=== PATIENT | female | born 1985 | race Caucasian/White ===

== ENCOUNTER 2016-12-04 21:43 | Emergency (ER) | payer OTHER ==
[~2016-12-04] VITALS: Ht 152.4 cm; Wt 89.8 kg
[2016-12-04] MEDS ORDERED: TAPAZOLE10 MG PO (22:00)
[2016-12-04] MEDS ORDERED: IRON325 PO (22:00)
[2016-12-04] MEDS ORDERED: STOOL SOFTENER100 MG PO (22:00)
[2016-12-04] MEDS ORDERED: TRINATE TABLET1 TAB PO (22:00)
[2016-12-04 23:02] LABS: BASOPHILS 0.4 % (0.0-2.0); EOSINOPHILS 4.2 % (0.0-3.0); HEMATOCRIT 37.4 % (37.0-47.0); HEMOGLOBIN 12.2 gm/dL (12.0-15.0); MCHC 32.7 g/dL (28.0-37.0); MCV 79.4 fL (80.0-100.0); MONOCYTES 8.8 % (1.0-8.0); PLATELET COUNT 159 thou/uL (150-400); POLYS 73.6 % (36.0-66.0); RBC 4.71 mil/uL (4.20-5.00); RDW 15.4 % (10.5-14.5)
[2016-12-04 23:04] LABS: MANUAL DIFF NO
[2016-12-04 23:08] LABS: URINE BILIRUBIN NEGATIVE (Negative); URINE BLOOD 3+ (Negative); URINE COLOR YELLOW; URINE GLUCOSE-RANDOM* NEGATIVE (Negative); URINE KETONES NEGATIVE (Negative); URINE LEUKOCYTES-REFLEX 1+ (Negative); URINE PROTEIN (DIPSTICK) NEGATIVE (Negative)
[2016-12-04 23:10] LABS: CALCIUM 8.6 mg/dL (8.5-10.1); CREATININE 0.7 mg/dL (0.6-1.0); POTASSIUM 3.1 mmol/L (3.5-5.1)
[2016-12-04 23:19] LABS: SQUAMOUS >10 Many /LPF (0-3)
[2016-12-04 23:20] LABS: CASTS None Seen /LPF (None Seen); CRYSTALS None Seen /LPF (None Seen); URINE RBC 3-10 Few /HPF (0-2); URINE WBC-REFLEX 6-15 Few /HPF (0-5)
[2016-12-05] MEDS ORDERED: NORFLEX100 MG PO (04:18)
[2016-12-05] MEDS ORDERED: NAPROSYN500 MG PO (04:18)
[2016-12-05 04:49] VITALS: BP 136/96
== END 2016-12-05 04:51 | disposition home or self-care (01) ==
LOC: ER 21:43
PROVIDERS: Emergency Medicine
DX: R20.9 Unspecified disturbances of skin sensation (principal); M79.602 Pain in left arm; M79.601 Pain in right arm; F10.99 Alcohol use, unspecified with unspecified alcohol-induced disorder; Z88.5 Allergy status to narcotic agent; Z98.890 Other specified postprocedural states